=== PATIENT | female | born 1990 | race African-American/Black ===

== ENCOUNTER 2018-11-06 20:03 | Emergency (ER) | payer OTHER | END 2018-11-06 20:04 | disposition home or self-care (01) | LOC: ERS 20:03 | DX: B80 Enterobiasis (principal); F41.9 Anxiety disorder, unspecified; F90.9 Attention-deficit hyperactivity disorder, unspecified type; F98.8 Other specified behavioral and emotional disorders with onset usually occurring in childhood and adolescence; F17.210 Nicotine dependence, cigarettes, uncomplicated; Z79.899 Other long term (current) drug therapy | CPT/HCPCS: 99283 ==